=== PATIENT | female | born 1950 | race Caucasian/White ===

== ENCOUNTER 2018-05-10 13:17 | Outpatient (REF) | payer MEDICARE, BC, SELFPAY ==
--- NOTE | 2018-05-10 12:15 | PAPFT_PTH ---
PATIENT: Torri Solo LOC: [facility]#:[id number] AGE/SX: 67/F ROOM: RE05/10/[address]: Tg Chicas : 1950 BED: DIS: 05/10/2018 SPEC #: [id number] RECD: 05/11/18 13:06 STATUS: SELIN ROBERTS #: [id number] DARLENE: 05/10/18 12:[address]: Tg Chicas DEPT: [facility] Cytology RECD BY: Joselin Hardy ENTERED: 05/11/18 13:07 SP TYPE: PAPFT PRAVEENA DR: Marino Flowers Tissues: 1 - CX/ENDOCX FOR PAP SMEARS Procedures: PAP THIN PREP/UVM Screening HPV DNA PROBE Comments: [id number]
== END 2018-05-10 13:37 ==
LOC: NCHCN 13:17
PROVIDERS: PCP Internal Medicine; Visit Provider Nurse Practitioner Family
DX: Z12.4 Encounter for screening for malignant neoplasm of cervix (principal); Z11.51 Encounter for screening for human papillomavirus (HPV); Z01.419 Encounter for gynecological examination (general) (routine) without abnormal findings
CPT/HCPCS: 88142; 87624

== ENCOUNTER 2019-01-20 11:26 | Outpatient (REF) | payer MEDICARE, BC, SELFPAY ==
[2019-01-20 20:36] LABS: FREE T4 1.37 ng/dL (0.76-1.46); TSH 0.03 uIU/mL (0.358-3.74)
[2019-01-24 14:51] LABS: HCV RNA Detection Quantitative Undetected IU/mL (UNDECT)
== END 2019-01-20 11:46 ==
LOC: NCHCN 11:26
PROVIDERS: PCP Internal Medicine; Visit Provider Internal Medicine
DX: E89.0 Postprocedural hypothyroidism (principal); Z11.59 Encounter for screening for other viral diseases
CPT/HCPCS: 84439; 84443; 87522

== ENCOUNTER 2019-03-08 12:30 | Outpatient (REF) | payer MEDICARE, BC, SELFPAY | END 2019-03-08 12:50 | LOC: NCHCN 12:30 | PROVIDERS: PCP Internal Medicine; Visit Provider Specialist/Technologist Athletic Trainer | DX: N39.0 Urinary tract infection, site not specified (principal) | CPT/HCPCS: 87077; 87086 ==

== ENCOUNTER 2019-03-27 01:22 | Outpatient (CLI) | payer MEDICARE, BC, SELFPAY ==
[2019-03-27 17:18] LABS: TSH (W/Ref FT4) 0.13 uIU/mL (0.36-3.74)
[2019-03-27 17:37] LABS: FREE T4 1.09 ng/dL (0.76-1.46)
== END 2019-03-27 01:42 ==
PROVIDERS: PCP Internal Medicine; Visit Provider Internal Medicine
DX: E89.0 Postprocedural hypothyroidism (principal)
CPT/HCPCS: 36415; 84439; 84443

== ENCOUNTER 2020-01-05 03:45 | Outpatient (CLI) | payer MEDICARE, BC, SELFPAY ==
[2020-01-05 10:59] LABS: Anion Gap 7.8 mmol/L (3-11); BUN 7 mg/dL (7-18); CO2 31.2 mmol/L (21.0-32.0); CREATININE 0.83 mg/dL (0.55-1.02); Calcium 8.7 mg/dL (8.5-10.1); Chloride 100 mmol/L (98-107); Glucose 93 mg/dL (74-106); Sodium 139 mmol/L (136-145); TSH (W/Ref FT4) 0.18 uIU/mL (0.36-3.74)
[2020-01-05 11:16] LABS: FREE T4 1.23 ng/dL (0.76-1.46)
== END 2020-01-05 04:05 ==
PROVIDERS: PCP Internal Medicine; Visit Provider Internal Medicine
DX: E89.0 Postprocedural hypothyroidism (principal)
CPT/HCPCS: 36415; 80048; 84439; 84443

== ENCOUNTER 2020-01-29 15:40 | Outpatient (REF) | payer MEDICARE, BC, SELFPAY ==
[2020-01-30 14:01] LABS: COVID-19 RT-PCR UVMMC Result Negative (Negative)
== END 2020-01-29 16:00 ==
LOC: NCHCN 15:40
PROVIDERS: PCP Internal Medicine; Visit Provider Nurse Practitioner Family
DX: J06.9 Acute upper respiratory infection, unspecified (principal)
CPT/HCPCS: U0003

== ENCOUNTER 2020-02-05 17:03 | Outpatient (REF) | payer MEDICARE, BC, SELFPAY ==
[2020-02-05 19:01] LABS: HCT 41.3 % (36.0-46.0); HGB 13.4 g/dL (12.0-15.5); Mean Corp. HGB Concentration 32.4 g/dL (32.0-36.0); Mean Corpuscular Hemoglobin 28.6 pg (27.0-33.0); Mean Corpuscular Volume 88.2 fL (80-95); Mean Platelet Volume 11.4 fL (8.0-11.0); Platelet Count 249 x1000/uL (130-400); RBC 4.68 m/cumm (4.00-5.20); RBC Distribution Width 14.7 % (11.7-14.6); White Blood Cell Count 5.01 k/cumm (4.4-10.8)
[2020-02-05 19:17] LABS: ALT 24 U/L (14-59); AST 22 U/L (15-37); Albumin 3.8 g/dL (3.4-5.0); Alkaline Phosphatase 77 U/L (46-116); BUN 14 mg/dL (7-18); Bilirubin, Total 0.4 mg/dL (0.2-1.0); C-Reactive Protein 0.13 mg/dL (0.0-0.3); CREATININE 0.65 mg/dL (0.55-1.02); Calcium 8.3 mg/dL (8.5-10.1); Chloride 101 mmol/L (98-107); Glucose 93 mg/dL (74-106); Potassium 3.7 mmol/L (3.5-5.1); Sodium 140 mmol/L (136-145); Total Protein 6.7 g/dL (6.4-8.2)
[2020-02-05 21:29] LABS: ESR 11 mm/hr (0-30)
[2020-02-07 11:59] LABS: Lyme Ab w Rflx to Lyme Confirm Negative (Negative)
[2020-02-09 01:11] LABS: Anaplasma phagocytophilum Negative (Negative); B. miyamotoi PCR Negative (Negative); Babesia divergens/MO-1 Negative (Negative); Babesia duncani Negative (Negative); Babesia microti Negative (Negative); Ehrlichia chaffeensis Negative (Negative); Ehrlichia ewingii/canis Negative (Negative); Ehrlichia muris eauclairensis Negative (Negative)
== END 2020-02-05 17:23 ==
LOC: NCHCN 17:03
PROVIDERS: PCP Internal Medicine; Visit Provider Nurse Practitioner Family
DX: R50.9 Fever, unspecified (principal)
CPT/HCPCS: 80053; 85027; 85652; 87798; 86140; 86618

== ENCOUNTER 2020-02-06 08:35 | Outpatient (CLI) | payer MEDICARE, BC, SELFPAY ==
--- NOTE | 2020-02-06 10:06 | DI.RAD_ITS ---
EXAM: XR CHEST 2V PA LATERAL CLINICAL HISTORY: FEVER, R50.9 TECHNIQUE: 2D digital imaging was performed. COMPARISON: CR CHEST 2 VIEWS PA,LAT from 12/29/2017 FINDINGS: The heart is not enlarged. The lungs are clear and well expanded. No pleural effusion seen. Mediastin al contours appear intact. IMPRESSION: Normal chest
== END 2020-02-06 08:55 ==
PROVIDERS: PCP Internal Medicine; Visit Provider Nurse Practitioner Family
DX: R50.9 Fever, unspecified (principal)
CPT/HCPCS: 71046

== ENCOUNTER 2020-02-13 02:40 | Outpatient (CLI) | payer MEDICARE, BC, SELFPAY ==
[2020-02-13 15:26] LABS: PHOSPHORUS 4.3 mg/dL (2.6-4.7)
[2020-02-14 09:45] LABS: Parathyroid Hormone,Intact 28 pg/mL (19-88)
[2020-02-14 14:54] LABS: ANA Interpretation Negative (Negative)
[2020-02-14 18:34] LABS: Myeloperoxidase Ab IgG <0.2 U; Proteinase 3 Ab (PR3) <0.2 U
== END 2020-02-13 03:00 ==
PROVIDERS: PCP Internal Medicine; Visit Provider Nurse Practitioner Family
DX: E83.51 Hypocalcemia (principal); R50.9 Fever, unspecified; E89.0 Postprocedural hypothyroidism
CPT/HCPCS: 36410; 87040; 83516; 83735; 83970; 84100; 86038

== ENCOUNTER 2020-07-26 01:04 | Outpatient (CLI) | payer MEDICARE, BC, SELFPAY ==
--- NOTE | 2020-07-26 | DI.MAMMO_ITS ---
EXAM: MAMMO SCREENING CLINICAL HISTORY: SCREENING, Z12.31 TECHNIQUE: Mammograms were interpreted according to the usual protocol including computer analysis w [employer] CAD system, tomosynthesis and C-view imaging. COMPARISON: 2011 through 2017 FINDINGS: The breasts are composed of scattered fibroglandular densities, Breast Density category B. No suspicious masses or suspicious microcalcifications are seen. No skin thickening or abnormal axillary lymph nodes are seen. There has been no significant change from prior exams. IMPRESSION: BI-RADS Category 1, Negative mammogram Yearly screening mammography is recommended. Breast Density - Category B, scattered fibroglandular densities. A negative radiographic report should not delay biopsy if a dominant or clinically suspicious mass is present. Up to ten percent of cancers are not identified on mammography. A negative report may reinforce clinical impression. Adenosis and dense breasts may obscure an underlying neoplasm. False positive reports average 6 to 10%. Patient will receive a letter notifying them of these results.
== END 2020-07-26 01:24 ==
PROVIDERS: PCP Internal Medicine; Visit Provider Nurse Practitioner Family
DX: Z12.31 Encounter for screening mammogram for malignant neoplasm of breast (principal)
CPT/HCPCS: 77063; 77067

== ENCOUNTER 2020-08-27 00:47 | Outpatient (CLI) | payer MEDICARE, BC, SELFPAY ==
--- NOTE | 2020-08-27 | DI.RAD_ITS ---
EXAM: XR SHOULDER LT COMPLETE 2+V CLINICAL HISTORY: LT SHOULDER JOINT PAIN, M25.512. TECHNIQUE: 2D digital imaging was performed. COMPARISON: No exams were available for comparison FINDINGS: There is severe narrowing of the glenohumeral joint. There is a prominent spur at the inferior humer al head. There are subchondral cysts in the glenoid. Spurring is also seen at the AC joint and grea ter tuberosity. IMPRESSION: Severe degenerative changes of the glenohumeral joint. DATA REPOSITORY: RADIATION DOSE DELIVERED:
== END 2020-08-27 01:07 ==
PROVIDERS: PCP Internal Medicine; Visit Provider Internal Medicine
DX: M25.512 Pain in left shoulder (principal); M19.012 Primary osteoarthritis, left shoulder; M25.812 Other specified joint disorders, left shoulder
CPT/HCPCS: 73030

== ENCOUNTER → 2020-09-03 08:30 | Outpatient (BNVA) | payer MEDICARE, BC, SELFPAY | PROVIDERS: PCP Internal Medicine; Referring Provider Internal Medicine; Visit Provider Student in an Organized Health Care Education/Training Program | DX: M19.012 Primary osteoarthritis, left shoulder (principal) | CPT/HCPCS: 99204; 99215 ==

== ENCOUNTER 2020-09-12 01:10 | Outpatient (CLI) | payer MEDICARE, BC, SELFPAY ==
--- NOTE | 2020-09-12 08:04 | DI.MRI_ITS ---
EXAM: MR UPPER JOINT LT WO CLINICAL HISTORY: Preop planning,LT ROTATOR CUFF TEAR,ARTHRITIS,M19.012,M75.102 TECHNIQUE: Multiplanar multisequence MRI of the shoulder was performed. COMPARISON: CR XR SHOULDER LT COMPLETE 2+V from 08/27/2020 FINDINGS: MARROW:There is no evidence of fracture, Hill-Sachs deformity, nor ominous osseous lesions. Main find ing here is severe advanced osteoarthritic degenerative changes in the glenohumeral joint including a dvanced cartilage full-thickness thinning degenerative subarticular cysts on both sides the joint as well as opposing osteophytes including a large adame-type osteophyte on the inferior articular surfac e of the humeral head. There is also a calcified intra-articular body evident just superior to the o sseous glenoid which measures approximately 9 millimeters by 8 millimeters by 8 millimeters. ROTATOR CUFF MECHANISM: AC JOINT/ACROMIUM: Moderate degenerative changes in the acromioclavicular joint with some impingement .. There is no evidence of os acromiale. Supraspinatus: Intact. No evidence of tear nor muscle atrophy. Infraspinatus: Intact. No evidence of tear nor muscle atrophy. Teres Minor: Intact. No evidence of tear nor muscle atrophy. Subscapularis/anterior cuff: Intact. No abnormal signal at the level of the multipennate insertional fibers. No significant tear nor atrophy. BICEPS TENDON: Normally position in the intertubercular groove. No evidence of tear. Fluid in the she consistent with element of tenosynovitis versus extension of the glenohumeral joint effusion. LABRUM: There is tearing of the superior labrum posterior to the biceps insertion. There is also tea ring of the posterior labrum. The partial tearing anterior labrum. Tearing inferior labrum. GLENOHUMERAL JOINT: Advanced osteoarthritic degenerative changes are scribe above. Also moderate-siz ed glenohumeral joint effusion and lipoma arborescens. Multiple degenerative subarticular cysts in t he osseous glenoid. No evidence of capsular tear. The inferior glenohumeral ligament is intact. CAPSULE: No capsular tears evident. The inferior glenohumeral ligament is intact. IMPRESSION: 1. The main finding is severe advanced osteoarthritic degenerative change in the glenohumeral joint, as detailed above and there is also a joint effusion with synovial thickening and lipoma arborescens pattern. Also at least 1 intra-articular calcified bodies described above, the this presently locate d above the osseous glenoid. 2. Multilevel labral tearing and attenuation. No tear or displacement of the biceps tendon. 3. No high-grade tearing of the rotator cuff mechanism tendons. DATA REPOSITORY:
--- NOTE | 2020-09-12 14:37 | DI.CT_ITS ---
EXAM: CT UPPER EXTREMITY LT WO CLINICAL HISTORY: Preop planning,ARTHRITIS LT GLENOHUMERAL JOINT, M19.012 TECHNIQUE: Imaging Protocol: Axial computed tomography images with coronal and sagittal reformatted images were created and reviewed. CONTRAST MATERIAL: Intravenous: None COMPARISON: CR XR SHOULDER LT COMPLETE 2+V from 08/27/2020 CR XR SHOULDER LT COMPLETE 2+V from 08/27/2020 FINDINGS: There is no evidence of fracture nor dislocation. The main finding is advanced osteoarthritic degener ative change in the shoulders-glenohumeral joint including significant joint space narrowing. Are, d egenerative subarticular cysts, and there is also a prominent adame-type osteophyte on the articular surface of the humeral head.. There is also bony excrescence off the superior humeral head further na rrowing the subacromial space. There is a loose intra-articular body interposed between upper jony l head and superior aspect of the osseous glenoid, this being corticated and measuring 8.5 millimeter s cephalocaudal by 5 millimeters wide. This or domes are by 12 millimeters. This may be related to the labrum or paralabral cyst. There are no lytic osseous lesions identified. There are also signif icant degenerative changes in the AC joint. IMPRESSION: Advanced osteoarthritic degenerative changes of the left shoulder as detailed above. RADIATION DOSE DELIVERED: 481.38mGy.cm Total DLP DATA REPOSITORY: All CT scans at this facility are submitted to the National Radiology Data Registry (NRDR) Dose Index Registry (DIR) with the [employer] (ACR). RADIATION OPTIMIZATION: All CT scans at this facility use at least one of these dose optimization te chniques: automated exposure control; mA and/or kV adjustment per patient size (includes targeted exa ms where dose is matched to clinical indication); or iterative reconstruction.
== END 2020-09-12 01:30 ==
PROVIDERS: PCP Internal Medicine; Visit Provider Student in an Organized Health Care Education/Training Program
DX: M19.012 Primary osteoarthritis, left shoulder (principal); S43.432A Superior glenoid labrum lesion of left shoulder, initial encounter
CPT/HCPCS: 73200; 73221

== ENCOUNTER → 2020-09-24 09:02 | Outpatient (BNVA) | payer MEDICARE, BC, SELFPAY | PROVIDERS: PCP Internal Medicine; Referring Provider Internal Medicine; Visit Provider Student in an Organized Health Care Education/Training Program | DX: M19.012 Primary osteoarthritis, left shoulder (principal) | CPT/HCPCS: 99214; 99215 ==

== ENCOUNTER 2020-12-23 18:18 | Outpatient (REF) | payer MEDICARE, BC, SELFPAY ==
[2020-12-23 21:18] LABS: Anion Gap 5.4 mmol/L (3-11); BUN 11 mg/dL (7-18); CO2 32.6 mmol/L (21.0-32.0); Calcium 8.4 mg/dL (8.5-10.1); Chloride 104 mmol/L (98-107); Estimated GFR 54.97 (mL/min/1.73m2); FREE T4 1.16 ng/dL (0.76-1.46); Glucose 114 mg/dL (74-106); Potassium 4.2 mmol/L (3.5-5.1); Sodium 142 mmol/L (136-145); TSH 0.74 uIU/mL (0.36-3.74)
== END 2020-12-23 18:19 | disposition home or self-care (01) ==
LOC: NCHCN 18:18
PROVIDERS: PCP Internal Medicine; Visit Provider Internal Medicine
DX: I10 Essential (primary) hypertension (principal); E89.0 Postprocedural hypothyroidism
CPT/HCPCS: 80048; 84439; 84443

== ENCOUNTER 2021-12-08 21:46 | Outpatient (REF) | payer MEDICARE, BC, SELFPAY ==
[2021-12-08 21:20] LABS: Anion Gap 3.1 mmol/L (3-11); BUN 8 mg/dL (7-18); CO2 32.9 mmol/L (21.0-32.0); CREATININE 0.6 mg/dL (0.55-1.02); Calcium 8.2 mg/dL (8.5-10.1); Chloride 104 mmol/L (98-107); Glucose 90 mg/dL (74-106); Potassium 3.9 mmol/L (3.5-5.1); Sodium 140 mmol/L (136-145); TSH (W/Ref FT4) 0.47 uIU/mL (0.36-3.74)
== END 2021-12-08 21:47 | disposition home or self-care (01) ==
LOC: NCHCN 21:46
PROVIDERS: PCP Internal Medicine; Visit Provider Family Medicine
DX: E89.0 Postprocedural hypothyroidism (principal); I10 Essential (primary) hypertension
CPT/HCPCS: 80048; 84443

== ENCOUNTER → 2022-01-16 00:24 | Outpatient (CLI) | payer MEDICARE, BC, SELFPAY ==
--- NOTE | 2022-01-16 14:00 | DI.MRI_ITS ---
Exam(s) MR ANGIO BRAIN WO CLINICAL HISTORY: TRANSIENT ISCHEMIC ATTACK G45.9. TECHNIQUE: Multiplanar multisequence MRA of the brain was performed. COMPARISON: None. FINDINGS: Carotid Arteries: No aneurysm, occlusion or significant stenosis. Anterior Cerebral Arteries: Right: No aneurysm, occlusion or significant stenosis. Left: No evidence of aneurysm. There is marked stenosis at the distal aspect of the A1 segment of t he left anterior cerebral artery. Middle Cerebral Arteries: Right: No aneurysm. There is marked stenosis at the proximal aspect of the M1 segment of the right middle cerebral artery. Left: No aneurysm, occlusion or significant stenosis. Posterior Cerebral Arteries: Right: No aneurysm, occlusion or significant stenosis. Left: No aneurysm, occlusion or significant stenosis. Vertebral Arteries: Right: No aneurysm, occlusion or significant stenosis. Left: No aneurysm, occlusion or significant stenosis. Basilar Artery: No aneurysm, occlusion or significant stenosis. IMPRESSION: Areas of stenosis involving the A1 of the left anterior cerebral artery and the M1 segment of the rig ht middle cerebral artery. DATA REPOSITORY:
--- NOTE | 2022-01-16 14:20 | DI.MRI_ITS ---
Exam(s) MR ANGIO NECK WO EXAM: MR ANGIO NECK WO CLINICAL HISTORY: TRANSIENT ISCHEMIC ATTACK G45.9. TECHNIQUE: Multiplanar multisequence MRA of the Neck was performed. COMPARISON: No exams were available for comparison FINDINGS: Common Carotid: Right: No dissection, occlusion or significant stenosis. Left: No dissection, occlusion or significant stenosis. External Carotid: Right: No evidence of occlusion or significant stenosis. Left: No evidence of occlusion or significant stenosis. Internal Carotid: Right: No dissection, occlusion or significant stenosis. Left: No dissection, occlusion or significant stenosis. Vertebral Artery: Right: No dissection, occlusion or significant stenosis. Left: No dissection, occlusion or significant stenosis. There is a dominant left vertebral artery. The visualized paraspinal soft tissues are unremarkable. IMPRESSION: No evidence of dissection, occlusion or significant stenosis. DATA REPOSITORY:
--- NOTE | 2022-01-16 14:58 | DI.MRI_ITS ---
Exam(s) MR BRAIN WO EXAM: MR BRAIN WO CLINICAL HISTORY: LOSS OF BALANCE R26.89 TECHNIQUE: Multiplanar multisequence MRI of the brain was performed. COMPARISON: No priors for comparison. FINDINGS: VENTRICLES AND EXTRA AXIAL SPACES: Normal in size and morphology for the patient's age. MIDLINE SHIFT: None. CEREBRAL PARENCHYMA: There is an area of restricted diffusion in the left centrum semiovale consisten t with a subacute infarct. No space-occupying lesion identified. There are areas of hyperintense sig nal seen in the white matter on the FLAIR and T2 weighted images most consistent with small vessel is chemic disease. HEMORRHAGE: None. BRAINSTEM/CEREBELLUM: Normal. CALVARIUM: Normal. VISUALIZED PARANASAL SINUSES/MASTOIDS:Clear. [place]: Please see the report of the MRA of the [id number]. PITUITARY GLAND: Unremarkable. OTHER FINDINGS: None. IMPRESSION: 1. Subacute infarct involving the left centrum semiovale. 2. Age-appropriate cerebral atrophy and small vessel ischemic disease. DATA REPOSITORY:
== END ==
PROVIDERS: PCP Internal Medicine; Visit Provider Family Medicine
DX: I66.12 Occlusion and stenosis of left anterior cerebral artery
CPT/HCPCS: 70544; 70547; 70551

== ENCOUNTER → 2022-01-22 13:31 | Outpatient (BNVA) | payer MEDICARE, BC, SELFPAY | PROVIDERS: PCP Internal Medicine; Referring Provider Family Medicine; Visit Provider Psychiatry & Neurology Neurology | DX: I69.320 Aphasia following cerebral infarction (principal); I69.361 Other paralytic syndrome following cerebral infarction affecting right dominant side; Z79.82 Long term (current) use of aspirin | CPT/HCPCS: 99215 ==

== ENCOUNTER 2022-02-02 03:02 | Outpatient (CLI) | payer MEDICARE, BC, SELFPAY ==
--- NOTE | 2022-04-09 16:19 | W.CARDEVENT ---
Date of service: 04/09/22 Time of Service: 16:19 Cardiac Event Recorder Referring Provider:: Shirley Page Indications:: Transient cerebral ischemia Cardiac Event Note: This is a 30-day event monitor ordered for transient cerebral ischemia. Predominant rhythm was sinus with an average heart rate of 67. Minimum was 55, maximum 109 There was no atrial fibrillation There was no high-grade AV block, no significant ventricular dysrhythmias, no pauses greater than 3 seconds, there were no apparent patient symptoms
== END 2022-02-02 03:03 | disposition home or self-care (01) ==
LOC: RT 03:02
PROVIDERS: PCP Internal Medicine; Visit Provider Psychiatry & Neurology Neurology
DX: I63.9 Cerebral infarction, unspecified (principal)
CPT/HCPCS: 93270

== ENCOUNTER 2022-02-06 02:25 | Outpatient (CLI) | payer MEDICARE, BC, SELFPAY ==
[2022-02-06 11:43] LABS: Hemoglobin A1C 5.9 % (<5.7)
[2022-02-06 12:07] LABS: Calculated LDL 140 mg/dL (<100); Cholesterol 219 mg/dL (<200); HDL Cholesterol 71 mg/dL (40-60); Triglyceride 44 mg/dL (<150)
== END 2022-02-06 02:26 | disposition home or self-care (01) ==
LOC: LBO 02:25
PROVIDERS: PCP Internal Medicine; Visit Provider Psychiatry & Neurology Neurology
DX: I63.9 Cerebral infarction, unspecified (principal); R73.9 Hyperglycemia, unspecified
CPT/HCPCS: 36415; 80061; 83036

== ENCOUNTER 2022-03-13 02:08 | Outpatient (CLI) | payer MEDICARE, BC, SELFPAY ==
--- NOTE | 2022-03-13 13:09 | W.NUTCONSULT ---
Date of service: 03/13/22 Time of Service: 13:09 Nutritional Consult ASSESSMENT: Torri was referred for nutritional counseling for hyperlipidemia and pre diabetes. Had unexpected stroke in December 2021. 5'4 112 lbs BMI 19 this is her usual weight Labs: 02/06/22: A1C: 5.9%, chol: 219, LDL: 140, HDL: 71, Tri. Does not want to take a statin. Allergies: gluten Meds: omega 3 1 g daily, 2000 iu Vit D3, 5 mg lisinopril Had stroke some time in December- studies pending. Fam Hx of CVA Diet Recall: B: oatmeal, raw milk, tea L: tuna salad on bed of lettuce with carrot raisin salad, D: soup, yam and protein such as chicken- uses olive oil, ghee. Eats a gluten free Mediterranean diet. Exercise: 30 min daily INTERVENTION: Overall, Torri's diet and lifestyle are not contributing factors for recent CVA. Her diet is mostly of whole foods and very low in simple carbs and saturated fats. She does eat eggs, raw milk, ghee and beef on occasion but not in excess. Encouraged continuation of lifestyle and eating choices. MONITORING AND EVALUATION: no follow planned at this time. Time Spent in Nutritional Counseling and Treatment: 30
== END 2022-03-13 02:09 | disposition home or self-care (01) ==
LOC: DS 02:08
PROVIDERS: PCP Internal Medicine; Visit Provider Dietitian, Registered

== ENCOUNTER → 2022-03-24 02:21 | Outpatient (CLI) | payer MEDICARE, BC, SELFPAY ==
--- NOTE | 2022-03-24 08:15 | DI.US_ITS ---
APPROVED REPORT EXAM: Comprehensive 2D, Doppler, and color-flow Echocardiogram Patient Location: [facility] Manager: Merary Bertrand RDCS (AE) Indications: Stroke, CVA Other Information Study Quality: Adequate Conclusion Normal left ventricular wall thickness and chamber size. Estimated ejection fraction is 60%. Wall m otion is normal Normal right ventricular size and systolic function Both atria are normal in size There is no structural or hemodynamically significant valvular disease Estimated right ventricular systolic pressure is 27 mmHg Wall motion Left Ventricle The left ventricle is normal size. The left ventricular systolic function is normal. The left ventric ular ejection fraction is within the normal range. There is normal left ventricular wall thickness. T here is normal LV segmental wall motion. There is no ventricular septal defect visualized. LVEF is 60 %. Right Ventricle The right ventricle is normal size. The right ventricular systolic function is normal. The RVSP is 26 .7mmHg. Atria The left atrium size is normal. The right atrium size is normal. The interatrial septum is intact wit h no evidence for an atrial septal defect. Aortic Valve The aortic valve is normal in structure. Aortic valve is trileaflet. There is no aortic valvular sten osis. No aortic regurgitation is present. Mitral Valve The mitral valve is normal in structure. No evidence of mitral valve stenosis. Mild mitral regurgitat ion. Tricuspid Valve The tricuspid valve is normal in structure. There is no tricuspid valve stenosis. Mild tricuspid regu rgitation. Pulmonic Valve The pulmonary valve is normal in structure. There is no pulmonic valvular stenosis. There is no pulmo pavel valvular regurgitation. Great Vessels The aortic root is normal in size. The ascending aorta is normal in size. Aortic arch is normal in ca liber. IVC is normal in size and collapses >50% with inspiration. Pericardium There is no pericardial effusion. 2D Dimensions IVSD d PLAX 0.83 cm F: 0.6-1.0 LV Vol A2C d MOD 53.2 mL LVPW d PLAX 0.89 cm F: 0.6 - 1.0 LV Vol A4C d MOD 62.0 mL LVID d PLAX 4.06 cm F: 3.8 - 5.2 LA vol/ BSA A2C s A-L 41.3 mL/m2 LVDs 2.75 cm F: 2.2 - 3.5 LA vol/ BSA A4C s A-L 28.6 mL/m2 Ao Root d 2.63 cm F: 2.7 - 3.3 LA Vol/ BSA Biplane s A-L 38.0 mL/m2 RA Area A4C 12.12 cm2 LA Area A4C s MOD 15.81 cm2 RA Vol/ BSA A4C s A-L 17.3 mL/m2 LA Area A2C s MOD 20.97 cm2 Ao Asc Diam d 3.11 cm F: 2.3 - 3.1 LV EF A4C MOD 58.4 % LV EF Teichholz 60.0 % LV EF A2C MOD 60.2 % LVEF (Quinones's) 60.40 % F: 54 - 74 LV EF Biplane MOD 60.4 % LV Volume 49.00 mL F: 46 - 106 SV 35.68 mL LV Volume Index 32.45 mL/m2 F: 29 - 61 SV Index 23.52 mL/m2 LV Vol Biplane MOD 59.1 mL FS 31.50 % M-Mode TAPSE 2.12 cm (M/F) >1.7 LV Diastology MV E' medial 0.096 (>0.07 m/s) E/A Ratio 1.8 LV E/e MED 9.25 (<14) MV E Vmax 0.89 (0.4-1.3 m/s) MV E' lateral 0.093 (>0.1 m/s) MV A Vmax 0.50 (0.4-1.3 m/s) LV E/e LAT 9.55 (<14) MV E/A Ratio 1.63 MV E/E' medial 9.27 MV E/E' lateral 9.59 Aortic Valve LVOT Area 2.87 cm2 AoV Area Vmax 1.88 cm2 LVOT Vmax 0.82 m/s AoV Area/ BSA (Vmax) 1.24 cm2/m2 LVOT Mean Alberto. 0.52 m/s TIFFANIE Mean Alberto. 1.70 cm2 LVOT Peak Grad 2.7 mmHg TIFFANIE Mean Alberto. Index 1.12 cm2/m2 LVOT Mean Grad 1.3 mmHg LVOT VTI 0.214 m LVOT Diam s 1.90 cm AoV Vmax 1.25 m/s Velocity Ratio 0.65 AoV Mean Alberto. 0.88 m/s AoV Peak Grad 6.3 mmHg LVOT SV 61.30 mL AoV Mean Grad 3.5 mmHg AoV VTI 0.239 m AoV Area VTI 2.56 cm2 AoV Area/ BSA (VTI) 1.69 cm/m2 Mitral Valve MV DT 159 (160-240 msec) MV PHT 46 msec MV Area PHT 4.78 cm2 MV VTI 0.341 m MV Area VTI 1.80 (4.0-6.0 cm2) Pulmonary Valve PV Vmax 0.57 (0.5-1.5 m/s) RVOT Peak Gr. 0.77 mmHg PV Peak Grad 1.3 mmHg RVOT Mean Gr. 0.45 mmHg PV Mean Grad 0.8 mmHg RVOT VTI 0.081 m PV VTI 0.117 m RVOT Vmax 0.44 m/s Tricuspid Valve TR Peak Grad 23.7 mmHg TR Vmax 2.43 m/s RA Pressure 3.00 mmHg RVSP (TR) 26.7 mmHg
== END ==
PROVIDERS: PCP Internal Medicine; Visit Provider Psychiatry & Neurology Neurology
DX: I63.9 Cerebral infarction, unspecified (principal); I10 Essential (primary) hypertension
CPT/HCPCS: 93306

== ENCOUNTER → 2022-04-01 12:52 | Outpatient (BNVA) | payer MEDICARE, BC, SELFPAY | PROVIDERS: PCP Internal Medicine; Referring Provider Internal Medicine; Visit Provider Psychiatry & Neurology Neurology | DX: I69.341 Monoplegia of lower limb following cerebral infarction affecting right dominant side (principal); Z79.82 Long term (current) use of aspirin; I10 Essential (primary) hypertension | CPT/HCPCS: 99213 ==

== ENCOUNTER 2022-04-09 16:19 | Outpatient (CLI) | payer MEDICARE, BC, SELFPAY | END 2022-04-09 16:20 | LOC: CARDO 04-13 08:52 | PROVIDERS: PCP Internal Medicine; Referring Provider Psychiatry & Neurology Neurology; Visit Provider Internal Medicine Cardiovascular Disease | DX: I63.9 Cerebral infarction, unspecified (principal) | CPT/HCPCS: 93272 ==

== ENCOUNTER → 2022-05-18 01:28 | Outpatient (CLI) | payer MEDICARE, BC, SELFPAY ==
--- NOTE | 2022-05-18 | DI.MAMMO_ITS ---
Exam(s) MAMMO SCREENING EXAM: MAMMO SCREENING CLINICAL HISTORY: SCREENING MAMMO FOR BREAST CANCER Z12.39 TECHNIQUE: Mammograms were interpreted according to the usual protocol including computer analysis w [employer] CAD system, tomosynthesis and C-view imaging. COMPARISON: 2013 through 2019 FINDINGS: The breasts are composed of scattered fibroglandular densities, Breast Density category B. No suspicious masses or suspicious microcalcifications are seen. No skin thickening or abnormal axillary lymph nodes are seen. There has been no significant change from prior exams. IMPRESSION: BI-RADS Category 1, Negative mammogram Yearly screening mammography is recommended. Breast Density - Category B, scattered fibroglandular densities. A negative radiographic report should not delay biopsy if a dominant or clinically suspicious mass is present. Up to ten percent of cancers are not identified on mammography. A negative report may reinforce clinical impression. Adenosis and dense breasts may obscure an underlying neoplasm. False positive reports average 6 to 10%. Patient will receive a letter notifying them of these results.
== END ==
PROVIDERS: PCP Internal Medicine; Visit Provider Family Medicine
DX: Z12.31 Encounter for screening mammogram for malignant neoplasm of breast (principal)
CPT/HCPCS: 77063; 77067

== ENCOUNTER 2022-07-29 15:07 | Outpatient (REF) | payer MEDICARE, BC, SELFPAY ==
[2022-07-29 14:42] LABS: Anion Gap 7.2 mmol/L (3-11); BUN 11 mg/dL (7-18); CO2 31.8 mmol/L (21.0-32.0); CREATININE 0.7 mg/dL (0.55-1.02); Calcium 8.7 mg/dL (8.5-10.1); Calculated LDL 145 mg/dL (<100); Chloride 102 mmol/L (98-107); Cholesterol 225 mg/dL (<200); Estimated GFR 92.98 (mL/min/1.73m2); Glucose 86 mg/dL (74-106); HDL Cholesterol 72 mg/dL (40-60); Sodium 141 mmol/L (136-145); Triglyceride 43 mg/dL (<150)
[2022-07-29 14:53] LABS: Vitamin D 25 Total 46.9 ng/mL (30-100)
[2022-07-29 14:59] LABS: Hemoglobin A1C 5.7 % (<5.7)
[2022-07-29 22:42] LABS: Progesterone 0.7 ng/mL (See Table)
== END 2022-07-29 15:08 | disposition home or self-care (01) ==
LOC: NCHCN 15:07
PROVIDERS: PCP Internal Medicine; Visit Provider Family Medicine
DX: I10 Essential (primary) hypertension (principal); E78.5 Hyperlipidemia, unspecified; I63.9 Cerebral infarction, unspecified; E03.9 Hypothyroidism, unspecified; Z79.899 Other long term (current) drug therapy
CPT/HCPCS: 80048; 80061; 82306; 83036; 84144

== ENCOUNTER 2022-08-12 09:27 | Outpatient (REF) | payer MEDICARE, BC, SELFPAY ==
[2022-08-12 14:47] LABS: LDL CHOLESTEROL 175 mg/dL (<100)
== END 2022-08-12 09:28 | disposition home or self-care (01) ==
LOC: NCHCN 09:27
PROVIDERS: PCP Internal Medicine; Visit Provider Family Medicine
DX: E78.5 Hyperlipidemia, unspecified (principal)
CPT/HCPCS: 83721

== ENCOUNTER 2022-12-02 15:54 | Outpatient (REF) | payer MEDICARE, BC, SELFPAY ==
[2022-12-02 17:05] LABS: HCT 45.5 % (36.0-46.0); HGB 14.8 g/dL (11.2-15.7); MCH 28.9 pg (27.0-33.0); MCHC 32.5 % (32.0-36.0); MCV 89 fL (80-95); Platelet Count 276 10^3/uL (130-400); RBC 5.12 10^6/uL (3.93-5.22); RDW 14.2 % (11.7-14.6); RDW-SD 46.5 fL; WBC 8.05 10^3/uL (4.4-10.8)
[2022-12-02 17:19] LABS: ALT 27 U/L (14-59); AST 22 U/L (15-37); Alkaline Phosphatase 81 U/L (46-116); Anion Gap 5.8 mmol/L (3-11); BUN 9 mg/dL (7-18); Bilirubin, Total 0.3 mg/dL (0.2-1.0); CO2 33.2 mmol/L (21.0-32.0); CREATININE 0.8 mg/dL (0.55-1.02); Calcium 8.3 mg/dL (8.5-10.1); Calculated LDL 164 mg/dL (<100); Chloride 101 mmol/L (98-107); Cholesterol 252 mg/dL (<200); Estimated GFR 78.72 (mL/min/1.73m2); Glucose 80 mg/dL (74-106); HDL Cholesterol 79 mg/dL (40-60); Potassium 3.7 mmol/L (3.5-5.1); Sodium 140 mmol/L (136-145); Total Protein 7.5 g/dL (6.4-8.2); Triglyceride 48 mg/dL (<150)
== END 2022-12-02 15:55 | disposition home or self-care (01) ==
LOC: NCHCN 15:54
PROVIDERS: PCP Internal Medicine; Visit Provider Family Medicine
DX: I10 Essential (primary) hypertension (principal); E78.5 Hyperlipidemia, unspecified
CPT/HCPCS: 80053; 80061; 85027

== ENCOUNTER 2023-01-19 18:43 | Outpatient (REF) | payer MEDICARE, BC, SELFPAY ==
[2023-01-19 21:04] LABS: ALT 23 U/L (14-59); AST 19 U/L (15-37)
== END 2023-01-19 18:44 | disposition home or self-care (01) ==
LOC: NCHCN 18:43
PROVIDERS: PCP Internal Medicine; Visit Provider Family Medicine
DX: E89.0 Postprocedural hypothyroidism (principal); E78.5 Hyperlipidemia, unspecified; I10 Essential (primary) hypertension
CPT/HCPCS: 84450; 84460

== ENCOUNTER 2023-01-28 15:42 | Outpatient (REF) | payer MEDICARE, BC, SELFPAY ==
[2023-01-28 21:47] LABS: TSH (W/Ref FT4) 4.44 uIU/mL (0.36-3.74)
[2023-01-28 22:05] LABS: FREE T4 1.07 ng/dL (0.76-1.46)
== END 2023-01-28 15:43 | disposition home or self-care (01) ==
LOC: NCHCN 15:42
PROVIDERS: PCP Internal Medicine; Visit Provider Family Medicine
DX: E89.0 Postprocedural hypothyroidism (principal)
CPT/HCPCS: 84439; 84443

== ENCOUNTER 2023-01-29 00:54 | Outpatient (CLI) | payer MEDICARE, BC, SELFPAY ==
--- NOTE | 2023-01-29 | DI.DEXA_ITS ---
Exam(s) XR DEXA BONE DENSITY W/WO RJ EXAM: XR DEXA BONE DENSITY W/WO RJ CLINICAL HISTORY: DISORDER BONE DENSITY M85.88 OSTEOPENIA M85.80 SCREENING FOR OSTEOPOROSIS TECHNIQUE: Routine DEXA evaluation of the lumbar spine, hip, or forearm. COMPARISON: DX DEXA BONE DENSITY WITH RJ from 01/20/2018 FINDINGS: Performed on a [employer] unit. Lateral image: L1 wedge compression fracture again noted, without further height loss Lumbar Spine total T-score: -1.3. Prior reading in 2018 was -1.2 Hip total T-score:-1.7. Prior 2018 reading was -1.5 Independent reading at the level of the femoral neck yields T-score of -1.4 Forearm total T-score: -2.4. Prior form reading in 2018 was -1.0 IMPRESSION: Bone mineral density measures in the osteopenia range. Fracture risk is moderate. Note: Any spine fracture indicates 5x risk for subsequent spine fracture and 2x risk for subsequent h ip fracture. World Health Organization criteria for BMD interpretation classify patients: Normal...... T- Score at or above -1.0 Osteopenic... T- Score between -1.0 and -2.5 Osteoporosis... T-Score at or below -2.5
== END 2023-01-29 01:14 ==
LOC: DI 00:54
PROVIDERS: PCP Internal Medicine; Visit Provider Family Medicine
DX: M85.88 Other specified disorders of bone density and structure, other site (principal); Z13.820 Encounter for screening for osteoporosis
CPT/HCPCS: 77080

== ENCOUNTER 2023-05-27 11:10 | Outpatient (REF) | payer MEDICARE, BC, SELFPAY ==
[2023-05-27 15:52] LABS: ALT 27 U/L (14-59); AST 23 U/L (15-37); Albumin 3.9 g/dL (3.4-5.0); Alkaline Phosphatase 70 U/L (46-116); Anion Gap 5.5 mmol/L (3-11); BUN 9 mg/dL (7-18); Bilirubin, Total 0.4 mg/dL (0.2-1.0); CO2 29.5 mmol/L (21.0-32.0); CREATININE 0.7 mg/dL (0.55-1.02); Calcium 8.8 mg/dL (8.5-10.1); Calculated LDL 152 mg/dL (<100); Chloride 100 mmol/L (98-107); Cholesterol 227 mg/dL (<200); Estimated GFR 92.41 (mL/min/1.73m2); Glucose 89 mg/dL (74-106); HDL Cholesterol 66 mg/dL (40-60); Potassium 4.6 mmol/L (3.5-5.1); Sodium 135 mmol/L (136-145); TSH (W/Ref FT4) 2.59 uIU/mL (0.36-3.74); Total Protein 7.4 g/dL (6.4-8.2); Triglyceride 48 mg/dL (<150)
== END 2023-05-27 11:11 | disposition home or self-care (01) ==
LOC: NCHCN 11:10
PROVIDERS: PCP Internal Medicine; Visit Provider Family Medicine
DX: E89.0 Postprocedural hypothyroidism (principal)
CPT/HCPCS: 80053; 80061; 84443

== ENCOUNTER 2023-12-27 12:26 | Outpatient (REF) | payer MEDICARE, BC, SELFPAY ==
[2023-12-27 15:12] LABS: HCT 41.6 % (36.0-46.0); HGB 13.9 g/dL (11.2-15.7); MCH 28.9 pg (27.0-33.0); MCHC 33.4 % (32.0-36.0); MCV 87 fL (80-95); Platelet Count 233 10^3/uL (130-400); RBC 4.81 10^6/uL (3.93-5.22); RDW 14.2 % (11.7-14.6); RDW-SD 45.5 fL; WBC 5.18 10^3/uL (4.4-10.8)
[2023-12-27 15:56] LABS: ALT 27 U/L (14-59); AST 20 U/L (15-37); Albumin 3.9 g/dL (3.4-5.0); Alkaline Phosphatase 70 U/L (46-116); Anion Gap 7.8 mmol/L (3-11); BUN 10 mg/dL (7-18); Bilirubin, Total 0.5 mg/dL (0.2-1.0); CO2 31.2 mmol/L (21.0-32.0); CREATININE 0.8 mg/dL (0.55-1.02); Calcium 8.5 mg/dL (8.5-10.1); Calculated LDL 125 mg/dL (<100); Chloride 103 mmol/L (98-107); Cholesterol 214 mg/dL (<200); Estimated GFR 78.24 (mL/min/1.73m2); Glucose 89 mg/dL (74-106); HDL Cholesterol 80 mg/dL (40-60); Potassium 4.3 mmol/L (3.5-5.1); Sodium 142 mmol/L (136-145); TSH (W/Ref FT4) 6.39 uIU/mL (0.36-3.74); Triglyceride 47 mg/dL (<150)
[2023-12-27 16:38] LABS: FREE T4 0.98 ng/dL (0.76-1.46)
== END 2023-12-27 12:27 | disposition home or self-care (01) ==
LOC: NCHCN 12:26
PROVIDERS: PCP Internal Medicine; Visit Provider Family Medicine
DX: I10 Essential (primary) hypertension (principal); E78.5 Hyperlipidemia, unspecified; E03.9 Hypothyroidism, unspecified
CPT/HCPCS: 80053; 80061; 85027; 84439; 84443

== ENCOUNTER 2024-02-29 16:03 | Outpatient (REF) | payer MEDICARE, BC, SELFPAY ==
[2024-02-29 21:42] LABS: TSH 1.16 uIU/Ml (0.36-3.74)
== END 2024-02-29 16:04 | disposition home or self-care (01) ==
LOC: NCHCN 16:03
PROVIDERS: PCP Internal Medicine; Visit Provider Family Medicine
DX: E03.9 Hypothyroidism, unspecified (principal)
CPT/HCPCS: 84443

== ENCOUNTER 2024-05-11 21:12 | Outpatient (REF) | payer MEDICARE, BC, SELFPAY | END 2024-05-11 21:13 | disposition home or self-care (01) | LOC: NCHCN 21:12 | PROVIDERS: PCP Internal Medicine; Visit Provider Family Medicine | DX: N39.0 Urinary tract infection, site not specified (principal); R82.89 Other abnormal findings on cytological and histological examination of urine | CPT/HCPCS: 87086 ==

== ENCOUNTER 2024-06-22 16:11 | Outpatient (REF) | payer MEDICARE, BC, SELFPAY | END 2024-06-22 16:12 | disposition home or self-care (01) | LOC: NCHCN 16:11 | PROVIDERS: PCP Internal Medicine; Visit Provider Family Medicine | DX: N39.0 Urinary tract infection, site not specified (principal); R82.89 Other abnormal findings on cytological and histological examination of urine | CPT/HCPCS: 87077; 87086; 87186 ==

== ENCOUNTER 2025-01-09 15:00 | Outpatient (REF) | payer MEDICARE, BC, SELFPAY ==
[2025-01-09 15:35] LABS: Abs Immature Grans 0.01 10^3/uL (0.0-0.06); Absolute Basophil Count 0.04 10^3/uL (0.0-0.2); Absolute Lymphocyte Count 1.16 10^3/uL (1.2-3.4); Absolute Monocyte Count 0.41 10^3/uL (0.1-0.8); Absolute Neutrophil Count 2.92 10^3/uL (1.2-6.7); Basophils % 0.9 %; Eosinophils % 2.2 %; HCT 41.9 % (36.0-46.0); HGB 13.8 g/dL (11.2-15.7); Immature Grans % 0.2 %; MCH 28.7 pg (27.0-33.0); MCHC 32.9 % (32.0-36.0); MCV 87 fL (80-95); MPV 11.4 fL (8.0-11.0); Monocytes % 8.8 %; Neutrophils % 62.9 %; Platelet Count 228 10^3/uL (130-400); RBC 4.81 10^6/uL (3.93-5.22); RDW 13.5 % (11.7-14.6); RDW-SD 43.8 fL; WBC 4.64 10^3/uL (4.4-10.8)
[2025-01-09 15:55] LABS: ALT 20 U/L (14-59); AST 25 U/L (15-37); Albumin 3.9 g/dL (3.4-5.0); Alkaline Phosphatase 86 U/L (46-116); Anion Gap 6.4 mmol/L (3-11); BUN 8 mg/dL (7-18); Bilirubin, Total 0.4 mg/dL (0.2-1.0); CO2 32.6 mmol/L (21.0-32.0); CREATININE 0.6 mg/dL (0.55-1.02); Calcium 8.5 mg/dL (8.5-10.1); Chloride 100 mmol/L (98-107); Estimated GFR 94.72 (mL/min/1.73m2); Glucose 60 mg/dL (74-106); LDL CHOLESTEROL 113 mg/dL (<100); Potassium 3.6 mmol/L (3.5-5.1); Sodium 139 mmol/L (136-145); TSH 0.35 uIU/mL (0.36-3.74)
[2025-01-11 11:43] LABS: Apolipoprotein B, S 87 mg/dL
== END 2025-01-09 15:01 | disposition home or self-care (01) ==
LOC: NCHCN 15:00
PROVIDERS: PCP Internal Medicine; Visit Provider Family Medicine
DX: I10 Essential (primary) hypertension (principal); E03.9 Hypothyroidism, unspecified; E78.5 Hyperlipidemia, unspecified
CPT/HCPCS: 80053; 82172; 83721; 84443; 85025

== ENCOUNTER 2025-01-18 12:52 | Outpatient (REF) | payer MEDICARE, BC, SELFPAY ==
[2025-01-18 16:55] LABS: Vitamin B12 419 pg/mL (193-986)
== END 2025-01-18 12:53 | disposition home or self-care (01) ==
LOC: NCHCN 12:52
PROVIDERS: PCP Family Medicine; Visit Provider Family Medicine
DX: R53.83 Other fatigue (principal)
CPT/HCPCS: 82607

== ENCOUNTER 2025-02-09 00:06 | Outpatient (CLI) | payer MEDICARE, BC, SELFPAY ==
--- NOTE | 2025-02-09 12:14 | DI.MAMMO_ITS ---
Exam(s) MAMMO SCREENING EXAM: MAMMO SCREENING CLINICAL HISTORY: SCREENING, Z12.31 TECHNIQUE: Bilateral full field digital CC and MLO mammographic images were obtained with 3D tomosynthesis and utilizing computer aided detection (CAD). COMPARISON: Comparison is made with prior examinations. FINDINGS: Masses/Architectural Distortion: No suspicious masses or areas of architectural distortion are present. Microcalcifications: No suspicious pleomorphic-type are seen. Skin Thickening/Nipple Retraction: None. IMPRESSION: 1. No significant interval change with no specific features of malignancy noted. 2. Unless there is more urgent need, screening mammography is recommended, as per [place] [employer] guidelines. BI-RADS Category 1 - Negative Breast Density - Category B - There are scattered areas of fibroglandular density. Breast density Category C or D implies that the patient has dense breast tissue. Dense breast tissue can make it harder to find cancer on a mammogram. Dense breast tissue is also associated with an increased risk of breast cancer. This information about the result of the mammogram report was provided to the patient to raise their awareness. Use this report when you speak with the patient about their risks for breast cancer, which includes their family history. At that time, you may recommend additional screening tests (Ultrasound or MRI) as these tests may add significant information. A negative radiographic report should not delay biopsy if a dominant or clinically suspicious mass is present. Up to ten percent of cancers are not identified on mammography. A negative report may reinforce clinical impression. Adenosis and dense breasts may obscure an underlying neoplasm. False positive reports average 6 to 10%. Patient will receive a letter notifying them of these results.
== END 2025-02-09 00:26 ==
LOC: DI 00:06
PROVIDERS: PCP Family Medicine; Visit Provider Family Medicine
DX: Z12.31 Encounter for screening mammogram for malignant neoplasm of breast (principal); R92.323 Mammographic fibroglandular density, bilateral breasts
CPT/HCPCS: 77063; 77067